=== PATIENT | female | born 1980 | race Caucasian/White ===

== ENCOUNTER 2019-06-21 23:28 | Emergency (ER) | payer BC ==
[2019-06-21] MEDS ORDERED: Ketorolac 60 MG/2 ML SDV IM ONE (23:58)
[2019-06-21] MEDS ORDERED: Promethazine 25 MG/ML SDV IM ONE (23:58)
--- NOTE | 2019-06-22 00:04 | EDM.PDOC ---
ED HPI GENERAL MEDICAL PROBLEM - General Chief Complaint: General Stated Complaint: headache, nausea Time Seen by Provider: 06/21/19 23:51 Source of Information: Reports: Patient History Limitations: Reports: No Limitations - History of Present Illness INITIAL COMMENTS - FREE TEXT/NARRATIVE: patient presents to ER with complaints of headache and nausea related to influenza. Was seen in the ER in [place] last night, was running high fever, diagnosed with influenza A. She was also placed on Zofran for nausea and vomiting. Has vomited once tonight prior to coming here but no episodes of vomiting prior today. Took ibuprofen 11 hours ago but did not feel it has helped the headache so "didn't bother taking again and is immune to tylenol". Is still running low grade fevers. Mild cough. Feels the Tamiflu "tears up her stomach" so is unsure about taking again. She denies any double or blurred vision. No weakness in arms or legs. No gait disturbances. Onset: Gradual Duration: Day(s): Location: Reports: Head Quality: Reports: Throbbing Severity: Severe Improves with: Reports: None Associated Symptoms: Reports: Cough, Fever/Chills, Nausea/Vomiting. 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: Musculoskeletal History: Reports: Fracture Neurological History: Reports: Migraines Endocrine/Metabolic History: Reports: Obesity/BMI 30+ - Past Surgical History HEENT Surgical History: Reports: Tonsillectomy GI Surgical History: Reports: Cholecystectomy Female Surgical History: Reports: Hysterectomy Endocrine Surgical History: Reports: None Neurological Surgical History: Reports: None Musculoskeletal Surgical History: Reports: Shoulder Surgery Social & Family History - Family History Family Medical History: Noncontributory - Tobacco Use Smoking Status *Q: Never Smoker - Caffeine Use Caffeine Use: Reports: Soda - Recreational Drug Use Recreational Drug Use: No ED ROS GENERAL - Review of Systems Review Of Systems: See Below Constitutional: Reports: Fever, Chills, Malaise, Weakness, Decreased Appetite HEENT: Reports: Ear Pain, Throat Pain. Denies: Vertigo, Vision Change Respiratory: Reports: Cough. Denies: Shortness of Breath Cardiovascular: Denies: Chest Pain, Edema, Lightheadedness Endocrine: Reports: Fatigue GI/Abdominal: Reports: Nausea, Vomiting. Denies: Abdominal Pain, Constipation, Diarrhea : Reports: No Symptoms Musculoskeletal: Reports: No Symptoms Skin: Reports: No Symptoms Neurological: Reports: Headache ED EXAM, GENERAL - Physical Exam Exam: See Below Exam Limited By: No Limitations General Appearance: Alert, WD/WN, Mild Distress Eye Exam: Bilateral Eye: EOMI, PERRL Ears: Normal External Exam, Normal TMs Nose: Normal Inspection, Normal Mucosa, No Blood Throat/Mouth: Normal Inspection, Normal Oropharynx Head: Normocephalic Neck: Normal Inspection, Supple, Non-Tender Respiratory/Chest: No Respiratory Distress, Lungs Clear, Normal Breath Sounds Cardiovascular: Regular Rate, Rhythm GI/Abdominal: Normal Bowel Sounds, Soft, Non-Tender Extremities: Normal Inspection, No Pedal Edema Neurological: Alert, Oriented, CN II-XII Intact, Normal Cognition, Normal Gait, Normal Reflexes, No Motor/Sensory Deficits Skin Exam: Warm, Dry Course - Vital Signs Last Recorded V/S: Last Vital Signs Temp 100.5 F 06/21/19 23:33 Pulse 103 H 06/21/19 23:33 Resp 20 06/21/19 23:33 BP 103/74 06/21/19 23:33 Pulse Ox 95 06/21/19 23:33 - Orders/Labs/Meds Meds: Medications Discontinued Medications Generic Name Dose Route Start Last Admin Trade Name Freq PRN Reason Stop Dose Admin Ketorolac Tromethamine 60 mg 06/21/19 23:58 06/22/19 00:03 Toradol IM 06/21/19 23:59 60 mg ONETIME ONE Administration Promethazine HCl 25 mg 06/21/19 23:58 06/22/19 00:03 Phenergan IM 06/21/19 23:59 25 mg NOW ONE Administration Departure - Departure Time of Disposition: 00:02 Disposition: Home, Self-Care 01 Condition: Good Clinical Impression: Influenza, Headache - Discharge Information *PRESCRIPTION DRUG MONITORING PROGRAM REVIEWED*: No *COPY OF PRESCRIPTION DRUG MONITORING REPORT IN PATIENT ETHAN: No Referrals: PCP,None [Primary Care Provider] - Forms: ED Department Discharge Additional Instructions: 1. Continue Tamiflu as directed 2. Alternate tylenol with ibuprofen for fever or headache 3. Zofran as needed for nausea 4. Rest 5. Push fluids 6. Follow up if persisting concerns. Sepsis Event Note - Evaluation Sepsis Screening Result: No Definite Risk - Focused Exam Vital Signs: Vital Signs Temp Pulse Resp BP Pulse Ox 06/21/19 23:33 100.5 F 103 H 20 103/74 95 Date Exam was Performed: 06/22/19 Time Exam was Performed: 08:13
== END 2019-06-22 00:09 | disposition home or self-care (01) ==
LOC: CC.ED 23:28
DX: J11.1 Influenza due to unidentified influenza virus with other respiratory manifestations (principal)
CPT/HCPCS: 96372; 99283; J1885; J2550

== ENCOUNTER 2024-02-19 08:01 | Day surgery (SDC) | payer BC ==
[~2024-02-19 08:01] MED LIST: Lidocaine 1% 5 ML VIAL ONE
[2024-02-19] MEDS: Lactated Ringers 1,000 ML IV SCH (08:58)
[2024-02-19] MEDS ORDERED: fentaNYL 50 MCG/ML SDV ONE (09:30)
[2024-02-19] MEDS ORDERED: Midazolam 1 MG/ML 2 ML SDV ONE ×2 (09:30)
[2024-02-19] MEDS ORDERED: Propofol 200 MG/20 ML SDV ONE (09:30)
[2024-02-19] MEDS ORDERED: Flumazenil 0.1 MG/ML 10 ML MDV ONE (09:30)
[2024-02-19] MEDS ORDERED: Ondansetron 4 MG/2 ML SDV ONE (09:30)
[2024-02-19] MEDS ORDERED: Lidocaine 0.5% 50 ML SDV ONE (09:30)
[2024-02-19] MEDS ORDERED: Ketorolac 30 MG/ML SDV ONE (09:30)
[2024-02-19] MEDS: Lidocaine 1% 5 ML VIAL INJECT ONE (10:00)
== END 2024-02-19 11:20 | disposition home or self-care (01) ==
LOC: CC.SDS 08:01
PROVIDERS: ATTEND Surgery
DX: G56.01 Carpal tunnel syndrome, right upper limb (principal); F41.8 Other specified anxiety disorders; E66.9 Obesity, unspecified; Z68.42 Body mass index [BMI] 45.0-49.9, adult; Z79.899 Other long term (current) drug therapy
CPT/HCPCS: J1885; J2250; J2405; J2704; J3010; J3490; J7120